=== PATIENT | male | born 1950 | race Native Hawaiian/Other Pacific Islander ===

== ENCOUNTER 2019-04-26 09:28 | Outpatient (CLI) | payer OTHER ==
[~2019-04-26 09:28] MED LIST: ALBU90AE13 INH; MUCINEX600 MG PO; TIOTCAP2 INH
== END 2019-04-26 19:44 | disposition home or self-care (01) ==
LOC: RESP 09:28
DX: R06.02 Shortness of breath (principal)

== ENCOUNTER 2019-08-29 11:28 | Emergency (ER) | payer OTHER ==
[~2019-08-29] VITALS: Ht 177.8 cm; Wt 83.5 kg
[2019-08-29 11:53] LABS: PLATELET COUNT 278 K/uL (142-355)
[2019-08-29 11:58] LABS: POTASSIUM 3.8 mmol/L (3.6-5.2); SODIUM 139 mmol/L (136-145)
[2019-08-29 12:08] VITALS: BP 166/99; TEMP 98.7
== END 2019-08-29 12:25 | disposition short-term general hospital (02) ==
LOC: ED 11:28
PROVIDERS: Emergency Medicine
DX: I21.3 ST elevation (STEMI) myocardial infarction of unspecified site (principal); J44.9 Chronic obstructive pulmonary disease, unspecified
CPT/HCPCS: 80053; 82550; 82553; 84484; 85027; 85610; 85730; 93005; 94664; 96372; 96374; 96375; 96376; 99284; J1644; J2270; J3490

== ENCOUNTER 2019-08-29 12:30 | Outpatient (CLI) | payer OTHER | END 2019-08-29 12:58 | disposition short-term general hospital (02) | LOC: AMB 12:30 | DX: I21.3 ST elevation (STEMI) myocardial infarction of unspecified site (principal); R07.89 Other chest pain; R06.2 Wheezing; R60.0 Localized edema | CPT/HCPCS: A0425; A0427 ==

== ENCOUNTER 2019-11-16 18:23 | Emergency (ER) | payer OTHER ==
[~2019-11-16] VITALS: Ht 180.3 cm; Wt 81.6 kg
[2019-11-16 18:30] VITALS: BP 168/82; TEMP 98.1
== END 2019-11-16 18:40 | disposition home or self-care (01) ==
LOC: ED 18:23
DX: J44.1 Chronic obstructive pulmonary disease with (acute) exacerbation (principal)
CPT/HCPCS: 99281; J0696; J2930

== ENCOUNTER 2021-02-26 09:28 | Outpatient (CLI) | payer OTHER ==
[2021-02-26 10:24] LABS: PLATELET COUNT 196 K/uL (142-355)
[2021-02-26 10:38] LABS: POTASSIUM 3.8 mmol/L (3.6-5.2)
== END 2021-02-26 19:36 | disposition home or self-care (01) ==
LOC: LABW 09:28
PROVIDERS: ATTEND Nurse Practitioner Family
DX: R06.00 Dyspnea, unspecified (principal); J44.1 Chronic obstructive pulmonary disease with (acute) exacerbation
CPT/HCPCS: 36415; 80053; 85027; 87635; 88108; U0003

== ENCOUNTER 2021-08-27 17:12 | Emergency (ER) | payer OTHER ==
[~2021-08-27] VITALS: Ht 180.3 cm; Wt 95.3 kg
[2021-08-27 17:34] LABS: PLATELET COUNT 112 K/uL (142-355)
[2021-08-27 17:43] LABS: POTASSIUM 4.7 mmol/L (3.6-5.2)
[2021-08-27 18:05] LABS: PARTIAL THROMBOPLASTIN TIME 22.9 SECONDS (24.5-33.6)
[2021-08-28 01:00] VITALS: BP 140/90; TEMP 98.1
== END 2021-08-28 01:00 | disposition home or self-care (01) ==
LOC: ED 17:12
PROVIDERS: Emergency Medicine
DX: F10.129 Alcohol abuse with intoxication, unspecified (principal); Y90.6 Blood alcohol level of 120-199 mg/100 ml; R53.1 Weakness; R06.02 Shortness of breath
CPT/HCPCS: 80053; 80320; 82550; 83880; 84484; 85027; 85610; 85730; 93005; 94664; 96360; 96365; 96375; 99284; J3411; J3475; J3490

== ENCOUNTER 2022-06-21 09:16 | Inpatient (IN) | payer OTHER ==
[2022-06-21] VITALS (8 sets, daily range): BP systolic 111–164; BP diastolic 75–87; TEMP 97.8–98.3; Ht 180.3 cm; Wt 89.1 kg
[~2022-06-21] VITALS: Ht 180.3 cm; Wt 89.1 kg
[2022-06-21 09:47] LABS: PLATELET COUNT 267 K/uL (142-355)
[2022-06-21 09:50] LABS: POTASSIUM 3.8 mmol/L (3.6-5.2)
[2022-06-21] MEDS ORDERED: OMEPRAZOLE DR20 MG PO (20:17)
[2022-06-21] MEDS ORDERED: BUSPIRONE5 MG PO (20:17)
[2022-06-21] MEDS ORDERED: FOLI1TAB26 PO (20:18)
[2022-06-21] MEDS ORDERED: ALBUTEROL0.083 % INH (20:18)
[2022-06-21] MEDS ORDERED: Z-PAK PO (20:19)
[2022-06-21] MEDS ORDERED: ACETAMINOPHEN PO (20:20)
[2022-06-21] MEDS ORDERED: MEDROL DOSEPAK4 MG PO (20:20)
[2022-06-21] MEDS ORDERED: GNP MUCUS RELI400 MG PO (20:21)
[2022-06-22] VITALS (7 sets, daily range): BP systolic 120–163; BP diastolic 67–86; TEMP 97.4–97.7
[2022-06-22 05:38] LABS: PLATELET COUNT 233 K/uL (142-355)
[2022-06-23] VITALS: BP 149/83; TEMP 97.8
[2022-06-23 04:00] VITALS: BP 173/83; TEMP 97.2
[2022-06-23 05:58] LABS: POTASSIUM 4.3 mmol/L (3.6-5.2)
[2022-06-23 06:00] LABS: PLATELET COUNT 222 K/uL (142-355)
[2022-06-23 08:00] VITALS: BP 141/75; TEMP 97.8
[2022-06-23 12:00] VITALS: BP 141/82; TEMP 97.9
[2022-06-23 16:00] VITALS: BP 157/88; TEMP 97.8
[2022-06-23 19:54] VITALS: BP 161/90; TEMP 98.3
[2022-06-24] VITALS (7 sets, daily range): BP systolic 136–180; BP diastolic 63–98; TEMP 97.6–98.4
[2022-06-25 03:44] VITALS: BP 180/92; TEMP 97.6
[2022-06-25 08:00] VITALS: BP 175/99; TEMP 97.9
[2022-06-25 12:00] VITALS: BP 175/97; TEMP 97.9
[2022-06-25 12:49] LABS: PLATELET COUNT 246 K/uL (142-355)
[2022-06-25 13:10] LABS: POTASSIUM 4.1 mmol/L (3.6-5.2)
[2022-06-25 16:00] VITALS: BP 150/85; TEMP 98.1
[2022-06-25 20:00] VITALS: BP 179/98; TEMP 97.5
[2022-06-26] VITALS: BP 186/90; TEMP 97.5
[2022-06-26 04:00] VITALS: BP 151/101; TEMP 98
[2022-06-26 08:00] VITALS: BP 157/98; TEMP 97.7
[2022-06-26 12:00] VITALS: BP 135/80; TEMP 97.7
[2022-06-26 16:00] VITALS: BP 132/80; TEMP 97.3
[2022-06-26 20:00] VITALS: BP 152/96; TEMP 98.4
[2022-06-27] VITALS: BP 150/96; TEMP 98
[2022-06-27 04:00] VITALS: BP 190/101; TEMP 98.4
[2022-06-27 08:00] VITALS: BP 145/103; TEMP 98.7
[2022-06-27 11:19] VITALS: BP 153/92; TEMP 97.6
[2022-06-27 16:03] VITALS: BP 132/82; TEMP 97.7
[2022-06-27 20:00] VITALS: BP 171/92; TEMP 98
[2022-06-28 00:25] VITALS: BP 156/87; TEMP 97.8
[2022-06-28 04:00] VITALS: BP 161/98; TEMP 97.7
[2022-06-28 08:00] VITALS: BP 161/79; TEMP 97.7
[2022-06-28 12:00] VITALS: BP 178/103; TEMP 97.9
[2022-06-28 16:30] VITALS: BP 176/87; TEMP 98.4
[2022-06-28 18:25] VITALS: BP 148/85
[2022-06-29] VITALS (7 sets, daily range): BP systolic 147–170; BP diastolic 77–109; TEMP 97.4–98.8
[2022-06-29 12:18] LABS: PLATELET COUNT 203 K/uL (142-355)
[2022-06-29 12:25] LABS: POTASSIUM 4.5 mmol/L (3.6-5.2)
[2022-06-30 04:00] VITALS: BP 178/96; TEMP 98.2
[2022-06-30 08:00] VITALS: BP 146/87; TEMP 98
[2022-06-30] MEDS ORDERED: HYDR25TA60 PO (09:28)
[2022-06-30] MEDS ORDERED: GABA100C2 PO (09:28)
[2022-06-30] MEDS ORDERED: METO50TA27 PO (09:29)
[2022-06-30] MEDS ORDERED: PANTOPRAZOLE 40MG TA PO (09:29)
[2022-06-30] MEDS ORDERED: POTA20TA4 PO (09:30)
[2022-06-30] MEDS ORDERED: PRED10TA27 PO (09:30)
[2022-06-30] MEDS ORDERED: OLANZAPINE5 MG PO (09:31)
[2022-06-30] MEDS ORDERED: ALBUSOL INH (09:35)
== END 2022-06-30 12:45 | disposition home or self-care (01) | DRG 189 ==
LOC: ED 09:16 → MED/SURG 13:42
PROVIDERS: Emergency Medicine Emergency Medical Services; ADMIT Internal Medicine; ATTEND Internal Medicine
DX: J96.21 Acute and chronic respiratory failure with hypoxia (principal); J44.1 Chronic obstructive pulmonary disease with (acute) exacerbation; I11.0 Hypertensive heart disease with heart failure; I50.9 Heart failure, unspecified; F41.8 Other specified anxiety disorders; E83.42 Hypomagnesemia; K21.9 Gastro-esophageal reflux disease without esophagitis; R53.1 Weakness; R62.7 Adult failure to thrive; Z99.81 Dependence on supplemental oxygen; R26.89 Other abnormalities of gait and mobility
CPT/HCPCS: 36415; 36600; 80048; 80053; 82805; 83735; 83880; 84484; 85027; 85379; 85610; 85730; 87040; 87502; 87635; 93005; 94664; 94667; 94760; 96365; 96366; 96375; 99284; J0360; J1650; J1940; J1956; J2270; J2920; J2930; J3475; J3490; Q9963; U0003

== ENCOUNTER 2022-07-14 07:56 | Outpatient (CLI) | payer OTHER ==
[~2022-07-14 07:56] MED LIST changes: +ACETAMINOPHEN PO; +ALBUSOL INH; +ALBUTEROL0.083 % INH; +BUSPIRONE5 MG PO; +FOLI1TAB26 PO; +GABA100C2 PO; +GNP MUCUS RELI400 MG PO; +HYDR25TA60 PO; +MEDROL DOSEPAK4 MG PO; +METO50TA27 PO; +OLANZAPINE5 MG PO; +OMEPRAZOLE DR20 MG PO; +PANTOPRAZOLE 40MG TA PO; +POTA20TA4 PO; +PRED10TA27 PO; +Z-PAK PO
[2022-07-14 08:16] LABS: POTASSIUM 4.9 mmol/L (3.6-5.2)
[2022-07-14 08:17] LABS: PLATELET COUNT 275 K/uL (142-355)
== END 2022-07-14 18:58 | disposition home or self-care (01) ==
LOC: LAB 07:56
PROVIDERS: ATTEND Family Medicine
DX: J96.12 Chronic respiratory failure with hypercapnia (principal); J44.9 Chronic obstructive pulmonary disease, unspecified; I10 Essential (primary) hypertension
CPT/HCPCS: 80053; 80061; 85027; 87081